=== PATIENT | female | born 1955 | race Caucasian/White ===

== ENCOUNTER 2017-10-31 07:45 | Outpatient (CLI) | payer OTHER ==
--- NOTE | 2017-10-31 08:45 | Diagnostic Imaging Report ---
FIDEL HOOPER [facility] [address] [facility].[address] [id number] Report Submission Date: Oct 31, 2017 8:06:04 AM MEDICATION SPECIALIST Patient Study Name: DORY MCGUIRE Date: Oct 31, 2017 7:55:11 AM MEDICATION SPECIALIST Modality Type: CR Gender: F Description: SHOULDER : 53 Institution: [facility] Physician: FIDEL HOOPER Right shoulder 2 views Clinical history: Acute right shoulder pain Mild osteoarthrosis of the right acromioclavicular joint and the glenohumeral joint without visible fracture, dislocation or bone destruction. No soft tissue calcifications. Impression: Mild osteoarthrosis of the right shoulder Electronically signed on Oct 31, 2017 8:06:04 AM MEDICATION SPECIALIST by: Govind MENDEZ
== END 2017-10-31 07:46 ==
LOC: RAD 07:45
PROVIDERS: ATTEND Nurse Practitioner Family
DX: M25.511 Pain in right shoulder (principal)
CPT/HCPCS: 73030